=== PATIENT | female | born 1950 | race Caucasian/White ===

== ENCOUNTER 2022-06-14 08:16 | Outpatient (CLI) | payer SELFPAY ==
[2022-06-14 10:07] LABS: Cholesterol* 215 mg/dL (90-199)
[2022-06-14 10:08] LABS: HDL Cholesterol* 48 mg/dL (>=50); LDL Cholesterol Calculated 145 mg/dL (<100); Triglycerides* 110 mg/dL (40-149)
== END 2022-06-14 08:17 | disposition home or self-care (01) ==
PROVIDERS: PCP Family Medicine; Visit Provider Family Medicine
DX: E78.5 Hyperlipidemia, unspecified (principal); E03.9 Hypothyroidism, unspecified; I10 Essential (primary) hypertension; M85.80 Other specified disorders of bone density and structure, unspecified site
CPT/HCPCS: 80061; 84443

== ENCOUNTER 2022-11-04 15:18 | Outpatient (CLI) | payer MEDICARE, BC, SELFPAY ==
--- NOTE | 2022-11-04 15:30 | CRLHL7_ITS ---
For Patients: As a result of the Century Cures Act, medical imaging exams and procedure reports are released immediately into your electronic medical record. You may view this report before your referring provider. If you have questions, please contact your health care provider. DXA BONE MINERAL DENSITY STUDY Reason for exam: Screening. Current height (in): 62.5. Weight (lb): 174. Menopause age: 43. Ethnicity: White. 1. Have you had a previous hip or vertebral fracture? No. 2. Have you had any fractures during your adult life which did not result from significant trauma (e.g., auto accident)? Yes. 3. Did either of your parents have a hip fracture? No. 4. Do you smoke? No. 5. Have you ever taken Glucocorticoids? No. 6. Do you have rheumatoid arthritis? No. 7. Do you have secondary osteoporosis? No. 8. Do you drink 3 or more alcoholic drinks per day? No. 9. Are you being treated for osteoporosis? No. 10. Have you ever taken any of the following medications: Actonel, Evista, Fosamax, Miacalcin, Reclast, Boniva, Forteo, HRT (i.e., estrogen/hormone therapy), Protelos, Prolia, Vitamin D, Calcium, other ??? please specify. ANSWER: Yes, vitamin D and calcium. 11. Do you have any of the following medical conditions: Anorexia or bulimia, asthma or emphysema, end stage renal disease, hyperparathyroidism, any seizure disorders, cancer, inflammatory bowel diseases, hysterectomy, other ??? please specify. ANSWER: No. 12. What was your maximum height (inches)? 63. 13. Do you perform weight bearing exercise regularly? Yes. 14. Do you regularly consume dairy products? Yes. 15. Do you drink caffeinated beverages? Yes. If female: 16. At what age did your period start? 10. 17. Are you premenopausal? No. 18. How many full-term pregnancies have you had? 1. 19. Have you ever missed your period for more than 6 months in a row (not including or menopause)? No. TECHNIQUE: Bone mineral density study was performed using the [employer]. FINDINGS: The results of the study expressed as bone mineral density (BMD) are as follows: Lumbar spine L1 to L3: BMD: 0.805 g/cm2. T-score: -1.9. Z-score: 0.4 Neck Left: BMD: 0.583 g/cm2. T-score: -2.4. Z-score: -0.4 Right: BMD: 0.626 g/cm2. T-score: -2.0. Z-score: 0.0 Total Left: BMD: 0.734 g/cm2. T-score: -1.7. Z-score: 0.0 Right: BMD: 0.786 g/cm2. T-score: -1.3. Z-score: 0.5 IMPRESSION: Osteopenia. *Comparison exams done prior to 04/2020 were performed on different unit, [employer]. COMPARISON: Compared with scan of 01/14/2020, the bone mineral density has increased by 5.0 percent at the spine and increased by 0.9 percent at the hip. FRAX 10-year Fracture Risk Major Osteoporotic Fracture: 22% Hip Fracture: 5.7% Reported Risk Factors: [place] () Neck BMD=0.583, BMI= 31.3, previous fracture Juni Nieves M.D. Diagnostic Radiologist [email or web address] SATNAM/micheal burton/Dictated by: Juni Nieves MD @ 11/05/2022 8:22:00 AM (Electronically Signed)
== END 2022-11-04 15:19 | disposition home or self-care (01) ==
LOC: RAD 15:19
PROVIDERS: PCP Family Medicine; Visit Provider Family Medicine
DX: Z13.820 Encounter for screening for osteoporosis (principal); M85.89 Other specified disorders of bone density and structure, multiple sites
CPT/HCPCS: 77080

== ENCOUNTER 2022-12-21 08:45 | Outpatient (CLI) | payer MEDICARE, BC, SELFPAY | END 2022-12-21 08:46 | disposition home or self-care (01) | LOC: OP CLINIC 08:47 | PROVIDERS: PCP Family Medicine; Visit Provider Surgery | DX: Z12.11 Encounter for screening for malignant neoplasm of colon (principal); K62.1 Rectal polyp; Z86.010 Personal history of colon polyps | CPT/HCPCS: 45385; 88305; 99153; J2250; J3010 ==

== ENCOUNTER 2023-01-12 13:00 | Outpatient (RCR) | payer MEDICARE, BC, SELFPAY ==
--- NOTE | 2022-12-27 15:22 | PT.OPEX ---
PT [place] Outpatient Eval PT [facility] Outpatient Eval Start: 12/27/22 12:30 Freq: Status: Active Protocol: Document 12/27/22 12:30 FARZANA (Rec: 12/27/22 12:33 Gauri [id number]) E-signed By Emmanuel Brown DPT, MS Physical Therapy Outpatient Evaluation Insurance Information Recert Due Date 03/27/23 Insurance Name Medicare B,Blue [employer] Medical Diagnosis Trochanteric bursitis, right hip; trochanteric bursitis, left hip; other specified enthesopathies of left lower limb, excluding foot; other specified enthesopathies of right lower limb, excluding foot. Treating Diagnosis B hip pain, decreased B LE flexibility, gait dysfunction, imbalance and B LE weakness. Subjective Subjective Pt presents to PT with c/o chronic B (L>R) lateral hip pain of insidious origin ~6 months ago. Denies injury with gradual onset of sxs. Describes sxs as sharp ache across the lateral hip. Performed silver sneakers classes 3x per week prior to MD visit but has not attended to wait until learning which exercises to avoid. Typically walks most days but has not this winter due to pain and ice. Finds exercise helps decrease sxs and plans on working with a field sales trainer in the future. Radiographs found mild B hip OA with well-maintained joint space. AGGR factors: sleeping on B (L>R) side, extended walking, sitting and standing. ALLEV factors: movement, rest . Pt finished paperwork 20 min into session. Pain Comments 0-8/10 Current Work Status Retired Preferred Name Tanja Precautions Therapy Limitations/Systems Review Not Limited Objective Functional Test Performed & Score LEFS: 24 Assessment Assessment/Impression Pt displays signs and symptoms consistent with B greater trochanteric bursitis. + pain with palpation with boggy edema surrounding B greater trochanter. B (L>R) piriformis , and B LE weakness and decreased endurance found with testing. Pt unable to perform SLR due to significant B quad weakness. She responded well to combination of stretching, recumbent biking and strengthening exercises with resolution of pain and improved flexibility following today?s session. She will benefit from continued skilled therapy to address these limitations. Primary Functional Limitations Sleeping on B (L>R) side, extended walking, sitting and standing. Plan of Care Rehabilitation Potential Excellent Physical Therapy Goals Long-term goals to be completed in 10 weeks: 1. Pt will be independent and compliant with HEP 2. Pt will display improved B hip flex, ABD and ext strength of >/=4+/5 to improve quality of gait 3. Pt will be able to walk >10 minutes with no elevation in B hip pain to improve cardiovascular health. 4. Pt will report improved quality of sleep not waking at night due to B hip pain. 5. Pt will report >9 point improvement in LEFS questionnaire to significantly improve marlon to daily activities. Coordination/Communication With Referral Source Treatment Plan/Direct Interventions Manual Therapy,Neuromuscular Re-ed,Therapeutic Exercises Frequency/Duration 1x per week for at least 6-10 visits, decreasing visit frequency, as able. Patient Will Be Discharged From Therapy Completion of LTG(s),Skills Plateau,Independent w/HEP, Independently Progressing Evaluation Billing Untimed Code Treatment Minutes 24 Complexity Moderate Certification Information Initial Certification Date 12/27/22 Ending Certification Date 03/27/23 Provider Signature Shows Agreement With POC & Medical Necessity Physician Signature & Date Requested Please Sign/Date Here Physician Comment/Change : Physician NPI Number #
== END 2023-06-16 23:59 | disposition home or self-care (01) ==
PROVIDERS: PCP Family Medicine; Visit Provider Orthopaedic Surgery Sports Medicine
DX: M70.61 Trochanteric bursitis, right hip (principal); Z51.89 Encounter for other specified aftercare
CPT/HCPCS: 97110; 97162

== ENCOUNTER 2023-02-17 08:20 | Outpatient (CLI) | payer MEDICARE, BC, SELFPAY | END 2023-02-17 08:21 | disposition home or self-care (01) | LOC: NFLDREF 02-18 13:30 | PROVIDERS: PCP Family Medicine; Referring Provider Family Medicine; Visit Provider Family Medicine | DX: E78.5 Hyperlipidemia, unspecified (principal); M85.80 Other specified disorders of bone density and structure, unspecified site; I10 Essential (primary) hypertension; E03.9 Hypothyroidism, unspecified; E66.9 Obesity, unspecified | CPT/HCPCS: 80053; 80061; 82306; 84443 ==

== ENCOUNTER 2023-05-11 10:01 | Outpatient (CLI) | payer MEDICARE, BC, SELFPAY | END 2023-05-11 10:02 | disposition home or self-care (01) | LOC: NFLDREF 10:02 | PROVIDERS: PCP Family Medicine; Visit Provider Family Medicine | DX: R35.0 Frequency of micturition (principal) | CPT/HCPCS: 87086; 87186 ==

== ENCOUNTER 2023-05-25 12:46 | Outpatient (CLI) | payer MEDICARE, BC, SELFPAY | END 2023-05-25 12:47 | disposition home or self-care (01) | PROVIDERS: PCP Family Medicine; Visit Provider Family Medicine | DX: R30.0 Dysuria (principal); R25.2 Cramp and spasm | CPT/HCPCS: 80053; 83735; 87086 ==

== ENCOUNTER 2023-08-09 09:10 | Outpatient (CLI) | payer MEDICARE, BC, SELFPAY ==
--- NOTE | 2023-08-09 09:15 | CRLHL7_ITS ---
For Patients: As a result of the Century Cures Act, medical imaging exams and procedure reports are released immediately into your electronic medical record. You may view this report before your referring provider. If you have questions, please contact your health care provider. BILATERAL SCREENING MAMMOGRAM WITH COMPUTER-AIDED DETECTION AND TOMOSYNTHESIS TECHNIQUE: CC and MLO views were obtained. These mammographic images have been obtained using full-field digital technique. These mammographic images were interpreted with the benefit of computer-aided detection. Breast Tomosynthesis was used in this interpretation. COMPARISON FILM: 04/30/22, 06/09/17. FINDINGS: There are scattered areas of fibroglandular density IMPRESSION: There is no radiographic evidence for malignancy. ASSESSMENT: BI-RADS Category 1: Negative RECOMMENDATION: Routine screening mammogram in 1 year. A lay language report of this examination will be provided to the patient. Juni Nieves M.D. Diagnostic Radiologist [email or web address] JUVENAL/Dictated by: Juni Nieves MD @ 08/09/2023 10:09:00 AM (Electronically Signed)
== END 2023-08-09 09:11 | disposition home or self-care (01) ==
LOC: MAMMO 09:11
PROVIDERS: PCP Family Medicine; Visit Provider Family Medicine
DX: Z12.31 Encounter for screening mammogram for malignant neoplasm of breast (principal)
CPT/HCPCS: 77063; 77067

== ENCOUNTER 2023-10-26 11:30 | Outpatient (RCR) | payer MEDICARE, BC, SELFPAY | END 2023-10-26 13:35 | disposition home or self-care (01) | PROVIDERS: PCP Family Medicine; Visit Provider Family Medicine | DX: R32 Unspecified urinary incontinence (principal); Z51.89 Encounter for other specified aftercare | CPT/HCPCS: 97110; 97112; 97161; 97535 ==

== ENCOUNTER 2023-12-08 15:10 | Emergency (ER) | payer MEDICARE, BC, SELFPAY ==
[2023-12-08 15:15] VITALS: BP 144/83; PULSE 83; RESP 18; TEMP 36.2; O2SAT 96; BMI 30.1
--- NOTE | 2023-12-08 16:22 | CRLHL7_ITS ---
For Patients: As a result of the Century Cures Act, medical imaging exams and procedure reports are released immediately into your electronic medical record. You may view this report before your referring provider. If you have questions, please contact your health care provider. INDICATION: Cough. TECHNIQUE: Chest 2 views. COMPARISON: None. FINDINGS: Cardiovascular and mediastinum: Heart size and vasculature are normal in caliber and appearance. Lungs and pleural spaces: Lungs are clear. No sign of infiltrate or mass. No sign of pleural effusion. No pneumothorax. Bones and soft tissues: No significant findings. IMPRESSION: No acute or significant findings. Dictated by Michel Peres MD @ 12/08/2023 5:05:06 PM (Electronically Signed)
--- NOTE | 2023-12-08 16:38 | ED_ITS ---
HPI - General Adult General Date Seen: 12/08/23 Chief complaint: Cough Stated complaint: Congestion, cough Time Seen by Provider: 12/08/23 15:34 History of Present Illness HPI narrative: this is a pleasant 73-year-old female presenting to the ER today with her hu zoila with concern for cough, pharyngitis, hoarse voice. She has a past medical history of hypothyroidism, hypertension, GERD, dyslipidemia. It sounds like she had a distant history of possible asthma when she was young but no long-term lung disease. Nonsmoker. No history of COPD. She and her were both exposed to RSV ( by her son in law, on [place],. About 2 and half weeks ago. ). They been sick for about 2 weeks with cough, congestion, nasal congestion, hoarse voice, mildly sore throat. She continues to have cough. If if anything , she is perhaps getting slightly better, but certainly not back to normal yet. However, her is feeling worse today is now running a fever. She is not have any shortness of breath. no chest pain. No shortness of breath. No vomiting. She has had decreased hearing in her right ear. It feels plugged and congestion. No ear pain. No headache. Appetite normal. No swelling in her legs. Related Data Home Medications Medication Instructions Recorded Confirmed calcium-magnesium 750 mg-465 mg 1 tab PO QDAY 06/16/22 09/06/23 tablet cholecalciferol (vitamin D3) 50 2,000 unit PO DAILY 06/16/22 09/06/23 mcg (2,000 unit) tablet Previous Rx's Medication Instructions Recorded levothyroxine 75 mcg tablet 75 mcg PO DAILY #90 tabs 02/22/23 lisinopril 10 mg tablet 10 mg PO DAILY #90 tabs 02/22/23 estradiol 10 mcg vaginal tablet 10 mcg vaginal .COMPLEX #45 tabs 09/06/23 (Vagifem) hydrochlorothiazide 12.5 mg tablet 12.5 mg PO QDAY #90 tabs 09/13/23 estradiol 0.01% (0.1 mg/gram) 1 g vaginal 2XW #42.5 grams 09/14/23 vaginal cream meclizine 25 mg tablet 25 mg PO QDAY PRN dizziness #30 12/08/23 tabs oseltamivir 75 mg capsule (Tamiflu) 75 mg PO BID 5 days #10 caps 12/08/23 Allergies Allergy/AdvReac Type Severity Reaction Status Date / Time Sulfa (Sulfonamide AdvReac out of it, Verified 12/08/23 15:17 Antibiotics) [facility] Medical History Irritated nevus ?D22.9 - Melanocytic nevi, unspecified (ICD-10) Seasonal allergies ?J30.2 - Other seasonal allergic rhinitis (ICD-10) Polyp of colon (10/07/16) ?K63.5 - Polyp of colon (ICD-10) Osteopenia (2016) ?M85.80 - Other specified disorders of bone density and structure, unspecified site (ICD-10) Hypothyroidism ?E03.9 - Hypothyroidism, unspecified (ICD-10) Hypertension ?I10 - Essential (primary) hypertension (ICD-10) Gastroesophageal reflux disease ?K21.9 - Gastro-esophageal reflux disease without esophagitis (ICD-10) Dyslipidemia (06/2019) ?E78.5 - Hyperlipidemia, unspecified (ICD-10) Surgical History History of tubal ligation (1989) ?Z98.51 - Tubal ligation status (ICD-10) History of tonsillectomy (1952) ?Z90.89 - Acquired absence of other organs (ICD-10) History of cataract extraction (2012) ?Z98.49 - Cataract extraction status, unspecified eye (ICD-10) Family History Epilepsy Bipolar disorder Family/Other Multiple myeloma Father Stroke Mother, Onset Age: 70 Social History Narrative: , 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 Smoking Status: Never smoker Do you use any of these nicotine containing products: None How often do you have a drink containing alcohol: never How often do you have six or more drinks on one occasion: Never AUDIT-C Alcohol total score: 0 Non-prescribed substance use: denies use Little interest or pleasure in doing things: not at all Feeling down, depressed, or hopeless: not at all Exam Narrative: Exam Narrative: Constitutional: Appears well-developed and well-nourished. Alert. Conversant. Non toxic. HENT: Head: Atraumatic. Nose: Nose normal. Right ear: Opaque fluid behind the TM. No TM erythema or bulging. Canal normal. Left ear: A small amount of fluid behind the TM. No TM erythema or bulging. Canal normal. Mouth/Throat: Oral mucosa is clear and moist. no trismus. Pharynx normal. Tons ils symmetric. No tonsillar enlargement, erythema, or exudate. She does have a hoarse voice consistent with laryngitis. No stridor or other signs of upper airway compromise or respiratory distress. Eyes: Conjunctivae normal. EOM normal. Pupils equal, round, and reactive to light. No scleral icterus. Neck: Normal range of motion. Neck supple. No tracheal deviation present. Cardiovascular: Normal rate, regular rhythm. No gallop. No friction rub. No murmur heard. Symmetric radial artery pulses Pulmonary/Chest: Effort normal. A frequent dry cough.No stridor. No respiratory distress. No wheezes. No rales. No rhonchi . No tenderness. Abdominal: Soft. No distension. No mass. No tenderness. Musculoskeletal: RUE: Normal range of motion. No tenderness. No deformity LUE: Normal range of motion. No tenderness. No deformity RLE: Normal range of motion. No edema. No tenderness. No deformity LLE: Normal range of motion. No edema. No tenderness. No deformity Lymph: No cervical adenopathy. Neurological: Alert and oriented to person, place, and time. Normal strength. CN II-VII intact. No sensory deficit. GCS eye subscore is 4. GCS verbal subscore is 5. GCS motor subscore is 6. Normal coordination Skin: Skin is warm and dry. No rash noted. No pallor. Normal capillary refill. Psychiatric: Normal mood. Normal affect. Const: Vital Signs, click to edit/add: Vital Signs - 24 hr 12/08/23 15:15 12/08/23 17:22 Temperature 97.2 F L 99.2 F Pulse Rate [Pulse Oximeter] 83 69 Respiratory Rate 18 20 Blood Pressure [Ri ght Upper Arm] 144/83 H 130/79 Pulse Oximetry 96 93 Oxygen Delivery Me thod Room Air Room Air Course Vital Signs Vital signs: Initial Vital Signs Temperature 97.2 F L 12/08/23 15:15 Temperature Source Temporal Artery Scan 12/08/23 15:15 Pulse Rate 83 12/08/23 15:15 Respiratory Rate 18 12/08/23 15:15 Blood Pressure 144/83 H 12/08/23 15:15 Blood Pressure Mean 103 12/08/23 15:15 Blood Pressure Position Sitting 12/08/23 15:15 Pulse Oximetry 96 12/08/23 15:15 Oxygen Delivery Method Room Air 12/08/23 15:15 Vital Signs Temperature 97.2 F L 12/08/23 15:15 Pulse Rate 83 12/08/23 15:15 Respiratory Rate 18 12/08/23 15:15 Blood Pressure 144/83 H 12/08/23 15:15 Pulse Oximetry 96 12/08/23 15:15 Oxygen Delivery Method Room Air 12/08/23 15:15 Temperature 99.2 F 12/08/23 17:22 Pulse Rate 69 12/08/23 17:22 Respiratory Rate 20 12/08/23 17:22 Blood Pressure 130/79 12/08/23 17:22 Pulse Oximetry 93 12/08/23 17:22 Oxygen Delivery Method Room Air 12/08/23 17:22 Medical Decision Making MDM Narrative Medical decision making narrative: This patient presents With her for evaluation of 2 week history of cough, nasal congestion. They are both here with the similar course of illness, however he is worse today as he has now developed a fever. Overall she says that her symptoms have been slowly improving. She has known exposure to RSV and we suspect that her illness initiated as an RSV infection. Viral testing today is negative for RSV, influenza, COVID. Given the duration of her cough we did obtain chest x-ray which is fortunately clear. There is no signs at this point of serious bacterial infection such as OM, RPA, epiglottitis, ASSISTANT STORE MANAGER, strep pharyngitis, pneumonia, sinusitis, meningitis, bacteremia, serious bacterial infection. There are no gastrointestinal symptoms at this point and no signs of dehydration. Her is positive for influenza a today. Since she has been heavily exposed him, so it is possible that her symptoms are also due to influenza. It sounds like her symptoms initially started as an RSV infection. Unclear to know if she truly has contracted influenza a today or exactly when the time of onset would be. Given her age and comorbidities, she would be at risk for serious illness from influenza. Therefore will start her on Tamiflu. Discussed with the patient and her that time flu has most benefit if it can be started within 48 hours of onset of illness. Were not able to identify a clear onset but at this point the risk benefit would favor treatment. There is no evidence for any bronchospasm on her exam. Breathing easily. Normal oxygen on room air. At this point she does not require hospitalization. Unlikely to benefit from laboratory workup. Close followup with primary care physician is indicated. Return to ED for Fever, worsening cough or trouble breathing, dehydration or protracted vomiting, confusion, or other worsening. Lab Data Labs: Lab Results 12/08/23 Range/Units 15:40 SARS-CoV-2 (PCR) Negative SARS-CoV-2 (Negative) Influenza Type A (PCR) Negative PCR FLU A (Negative) Influenza Type B (PCR) Negative PCR FLU B (Negative) RSV (PCR) Negative PCR RSV (Negative) Imaging Data Chest x-ray: Attestation: I have reviewed the pertinent imaging results. Radiologist's impression: IMPRESSION: No acute or significant findings. Discharge Plan Discharge Clinical Impression: Influenza Patient Disposition: Home, Self-Care Condition: Stable Instructions: Influenza (DC) Additional Instructions: as we discussed, please return to the ER right away if you have worsening trouble breathing, cough, high fever, weakness, or any concerns. Please stay home see known spread your infection to other people until your cough is improving and you have been afebrile for 24 hours. Prescriptions: New oseltamivir [Tamiflu] 75 mg capsule 75 mg PO BID 5 Days Qty: 10 0RF No Action cholecalciferol (vitamin D3) 50 mcg (2,000 unit) tablet 2,000 unit PO DAILY calcium-magnesium 750-465 mg tablet 1 tab PO QDAY levothyroxine 75 mcg tablet 75 mcg PO DAILY Qty: 90 4RF lisinopril 10 mg tablet 10 mg PO DAILY Qty: 90 4RF estradiol [Vagifem] 10 mcg tablet 10 mcg vaginal .COMPLEX Qty: 45 4RF Rx Instructions: 1 tab into vagina every nigth x 2 weeks, then twice a week hydrochlorothiazide 12.5 mg tablet 12.5 mg PO QDAY Qty: 90 1RF estradiol 0.01 % (0.1 mg/gram) cream 1 g vaginal 2XW Qty: 42.5 6RF meclizine 25 mg tablet 25 mg PO QDAY PRN (Reason: dizziness) Qty: 30 0RF Follow Up/Referrals: Erna Gonzalez MD [Primary Care Provider] - Stand Alone Forms: [employer] Info Instructions
[2023-12-08 16:55] LABS: PCR FLU A Negative PCR FLU A (Negative); PCR FLU B Negative PCR FLU B (Negative); PCR RSV Negative PCR RSV (Negative); SARS PCR* Negative SARS-CoV-2 (Negative)
[2023-12-08 17:22] VITALS: BP 130/79; PULSE 69; RESP 20; TEMP 37.3; O2SAT 93
== END 2023-12-08 18:05 | disposition home or self-care (01) ==
PROVIDERS: Emergency Provider Emergency Medicine; PCP Family Medicine
DX: J10.1 Influenza due to other identified influenza virus with other respiratory manifestations (principal)
CPT/HCPCS: 71046; 87631; 99283; 99284

== ENCOUNTER 2024-01-12 19:40 | Emergency (ER) | payer MEDICARE, BC, SELFPAY ==
[2024-01-12 19:44] VITALS: BP 137/94; PULSE 88; RESP 18; TEMP 37.4; O2SAT 96; BMI 30.1
--- NOTE | 2024-01-12 20:13 | ED.GENADULT ---
HPI - General Adult General Chief complaint: Chest Pain Stated complaint: chest pain Time Seen by Provider: 01/12/24 19:52 History of Present Illness HPI narrative: This 73-year-old female comes in reporting some chest discomfort over the past couple days that occurs only when taking a deep breath or coughing. She states that she did have a rather harsh cough prior to this but this has dissipated now. She does not report any shortness of breath, lightheadedness, diaphoresis, or exercise intolerance. She did have an episode of nausea earlier today that was not related to chest discomfort. She did have associated hearing loss in her right ear and vertigo symptoms suggestive of Meniere's disease. Related Data Home Medications Medication Instructions Recorded Confirmed calcium-magnesium 750 mg-465 mg 1 tab PO QDAY 06/16/22 01/06/24 tablet cholecalciferol (vitamin D3) 50 2,000 unit PO DAILY 06/16/22 01/06/24 mcg (2,000 unit) tablet Previous Rx's Medication Instructions Recorded levothyroxine 75 mcg tablet 75 mcg PO DAILY #90 tabs 02/22/23 lisinopril 10 mg tablet 10 mg PO DAILY #90 tabs 02/22/23 hydrochlorothiazide 12.5 mg tablet 12.5 mg PO QDAY #90 tabs 09/13/23 meclizine 25 mg tablet 25 mg PO QDAY PRN dizziness #30 12/08/23 tabs Allergies Allergy/AdvReac Type Severity Reaction Status Date / Time Sulfa (Sulfonamide AdvReac out of it, Verified 01/12/24 19:48 Antibiotics) spacey Review of Systems Status of ROS: Reports: 10 or more systems reviewed and unremarkable except as noted in History and below Narrative: Constitutional: No fevers, no weight gain or loss. Eyes: No discharge. No vision changes. HENT: No congestion, no sore throat, no ear pain. Cardiovascular: No palpitations. Respiratory: No shortness of breath, no wheezes. Occasional cough. Gastrointestinal: No abdominal pain, no vomiting, no diarrhea. Genitourinary: No dysuria, no hematuria. Musculoskeletal: Normal range of motion. Skin: No rashes, no pruritis. Neurological: No dizziness, weakness, sensory change, speech change. Endo/Heme/Allergies: No bruising or bleeding. No polydipsia. Pysch: no suicidality, no anxiety, no insomnia. All other systems reviewed and are negative. [facility] Medical History (Updated 01/12/24 @ 20:18 by Artis Elizabeth MD) Voice hoarseness ?R49.0 - Dysphonia (ICD-10) Acute vestibular neuritis ?H81.20 - Vestibular neuronitis, unspecified ear (ICD-10) Irritated nevus ?D22.9 - Melanocytic nevi, unspecified (ICD-10) Seasonal allergies ?J30.2 - Other seasonal allergic rhinitis (ICD-10) Polyp of colon (10/07/16) ?K63.5 - Polyp of colon (ICD-10) Osteopenia (2017) ?M85.80 - Other specified disorders of bone density and structure, unspecified site (ICD-10) Hypothyroidism ?E03.9 - Hypothyroidism, unspecified (ICD-10) Hypertension ?I10 - Essential (primary) hypertension (ICD-10) Gastroesophageal reflux disease ?K21.9 - Gastro-esophageal reflux disease without esophagitis (ICD-10) Dyslipidemia (06/2019) ?E78.5 - Hyperlipidemia, unspecified (ICD-10) Surgical History History of tubal ligation (1989) ?Z98.51 - Tubal ligation status (ICD-10) History of tonsillectomy (1952) ?Z90.89 - Acquired absence of other organs (ICD-10) History of cataract extraction (2012) ?Z98.49 - Cataract extraction status, unspecified eye (ICD-10) Family History Epilepsy Bipolar disorder Family/Other Multiple myeloma Father Stroke Mother, Onset Age: 70 Social History Narrative: , 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 Smoking Status: Never smoker Do you use any of these nicotine containing products: None How often do you have a drink containing alcohol: never How often do you have six or more drinks on one occasion: Never AUDIT-C Alcohol total score: 0 Non-prescribed substance use: denies use Little interest or pleasure in doing things: not at all Feeling down, depressed, or hopeless: not at all Exam Narrative: Exam Narrative: Constitutional: Well-developed, well-nourished, no acute distress. HEENT: Normocephalic, atraumatic. Neck: Normal range of motion. Nontender. Supple. Heart: Regular. No murmurs. Normal rate. Intact distal pulses. Lungs: Clear to auscultation. No wheezes, rhonchi, or rales. Chest discomfort in the upper anterior central chest is easily reproducible when taking a deep breath. Abdomen: Normal bowel sounds. Nontender. No rebound tenderness. Genitalia: Deferred. Back: No midline tenderness. Normal range of motion. Extremities: Normal range of motion. No injury. Skin: Intact. No rash. Warm. No erythema or pallor. Neurologic: No altered sensation. No weakness. Alert and oriented. Psychiatric: No suicidality. No anxiety or depression. No insomnia. Nursing notes and vitals signs are reviewed. Const: Vital Signs, click to edit/add: Vital Signs - 24 hr 01/12/24 19:44 Temperature 99.3 F Pulse Rate [Left P ulse Oximeter] 88 Respiratory Rate 18 Blood Pressure [Ri ght Upper Arm] 137/94 H Pulse Oximetry 96 Oxygen Delivery Me thod Room Air Course Vital Signs Vital signs: Initial Vital Signs Temperature 99.3 F 01/12/24 19:44 Temperature Source Temporal Artery Scan 01/12/24 19:44 Pulse Rate 88 01/12/24 19:44 Pulse Rhythm Regular 01/12/24 19:44 Pulse Strength 3+ Normal 01/12/24 19:44 Respiratory Rate 18 01/12/24 19:44 Blood Pressure 137/94 H 01/12/24 19:44 Blood Pressure Mean 108 H 01/12/24 19:44 Blood Pressure Position Sitting 01/12/24 19:44 Pulse Oximetry 96 01/12/24 19:44 Oxygen Delivery Method Room Air 01/12/24 19:44 Vital Signs Temperature 99.3 F 01/12/24 19:44 Pulse Rate 88 01/12/24 19:44 Respiratory Rate 18 01/12/24 19:44 Blood Pressure 137/94 H 01/12/24 19:44 Pulse Oximetry 96 01/12/24 19:44 Oxygen Delivery Method Room Air 01/12/24 19:44 Temperature 99.3 F 01/12/24 19:44 Pulse Rate 88 01/12/24 19:44 Respiratory Rate 18 01/12/24 19:44 Blood Pressure 137/94 H 01/12/24 19:44 Pulse Oximetry 96 01/12/24 19:44 Oxygen Delivery Method Room Air 01/12/24 19:44 Medical Decision Making MDM Narrative Medical decision making narrative: This patient has reproducible chest discomfort when taking a deep breath or coughing. She does not have any exercise intolerance or other associated symptoms that would indicate and intrathoracic problem other than her bronchial tree and chest wall symptoms. An EKG is obtained and shows normal sinus rhythm without ST or T-wave abnormalities. I did discuss lab and imaging options with the patient which were declined in a process of shared decision making. She does have incidental symptoms that are suspicious for Meniere's disease. The patient does have a follow-up appointment with ear nose and throat clinic in a few weeks. She is okay to be discharged home. ECG Data Attestation: I personally reviewed and interpreted this ECG as follows: Interpretation: Normal sinus rhythm. Rate is 81 beats per minute. There are no ST or T-wave abnormalities. Discharge Plan Discharge Clinical Impression: Acute chest wall pain Patient Disposition: Home, Self-Care Condition: Stable Additional Instructions: Continue current plans. Activity as tolerated. Follow up with MD or return if worsening. Prescriptions: No Action cholecalciferol (vitamin D3) 50 mcg (2,000 unit) tablet 2,000 unit PO DAILY calcium-magnesium 750-465 mg tablet 1 tab PO QDAY levothyroxine 75 mcg tablet 75 mcg PO DAILY Qty: 90 4RF lisinopril 10 mg tablet 10 mg PO DAILY Qty: 90 4RF hydrochlorothiazide 12.5 mg tablet 12.5 mg PO QDAY Qty: 90 1RF meclizine 25 mg tablet 25 mg PO QDAY PRN (Reason: dizziness) Qty: 30 0RF Follow Up/Referrals: Erna Gonzalez MD [Primary Care Provider] - Stand Alone Forms: [employer] Info Instructions
== END 2024-01-12 20:34 | disposition home or self-care (01) ==
LOC: ED 20:29
PROVIDERS: Emergency Provider Emergency Medicine Emergency Medical Services; PCP Family Medicine
DX: R07.89 Other chest pain (principal)
CPT/HCPCS: 93005; 99284

== ENCOUNTER 2024-04-06 07:45 | Outpatient (CLI) | payer MEDICARE, BC, SELFPAY | END 2024-04-06 07:46 | disposition home or self-care (01) | LOC: NFLDREF 04-09 15:30 | PROVIDERS: PCP Family Medicine; Referring Provider Family Medicine; Visit Provider Family Medicine | DX: E03.9 Hypothyroidism, unspecified (principal); E78.5 Hyperlipidemia, unspecified; I10 Essential (primary) hypertension; M85.80 Other specified disorders of bone density and structure, unspecified site | CPT/HCPCS: 80053; 80061; 82306; 84443 ==

== ENCOUNTER 2024-06-13 07:52 | Outpatient (CLI) | payer MEDICARE, BC, SELFPAY ==
--- NOTE | 2024-06-13 08:00 | CRLHL7_ITS ---
For Patients: As a result of the Century Cures Act, medical imaging exams and procedure reports are released immediately into your electronic medical record. You may view this report before your referring provider. If you have questions, please contact your health care provider. CLINICAL HISTORY: pelvic pain and perineal pain TECHNIQUE: 2D patel scale ultrasound. In addition color Doppler and spectral Doppler analysis was performed of the pelvis using a transvaginal approach. FINDINGS: On transvaginal imaging, the myometrium has a mildly heterogeneous echotexture. The uterus measures 6.0 x 2.7 x 4.0 cm. The endometrial lining measures 1 mm in thickness. The right ovary is not visualized and the left ovary measures 2.1 x 1.1 x 1.3 cm. The left ovary demonstrates normal arterial and venous blood flow on color Doppler and spectral Doppler analysis. There are no suspicious fluid collections within the cul-de-sac. Small cyst within the left ovary measures 7 x 6 x 5 millimeters. IMPRESSION: No suspicious findings. Dictated by Juni Nieves MD @ 06/14/2024 9:43:47 AM (Electronically Signed)
== END 2024-06-13 07:53 | disposition home or self-care (01) ==
LOC: US 07:53
PROVIDERS: PCP Family Medicine; Visit Provider Family Medicine
DX: R10.2 Pelvic and perineal pain (principal)
CPT/HCPCS: 76830; 76856

== ENCOUNTER 2024-07-04 12:37 | Outpatient (CLI) | payer MEDICARE, BC, SELFPAY | END 2024-07-04 12:38 | disposition home or self-care (01) | PROVIDERS: PCP Family Medicine; Visit Provider Otolaryngology | DX: Z79.52 Long term (current) use of systemic steroids (principal); R76.8 Other specified abnormal immunological findings in serum; H91.90 Unspecified hearing loss, unspecified ear; E03.9 Hypothyroidism, unspecified; I10 Essential (primary) hypertension | CPT/HCPCS: 86039; 86431; 86618 ==

== ENCOUNTER 2024-07-20 14:59 | Outpatient (CLI) | payer MEDICARE, BC, SELFPAY ==
--- NOTE | 2024-07-20 15:30 | CRLHL7_ITS ---
For Patients: As a result of the Century Cures Act, medical imaging exams and procedure reports are released immediately into your electronic medical record. You may view this report before your referring provider. If you have questions, please contact your health care provider. INDICATION: Hearing loss right ear. TECHNIQUE: Multiplanar multisequence MR imaging of the brain and internal auditory canals prior to and following intravenous contrast. COMPARISON: None. FINDINGS: Mild diffuse cerebral volume loss. No mass effect or midline shift. Scattered FLAIR hyperintensities in the supratentorial white matter and domingo, typical for mild chronic microvascular ischemic changes. Very small left middle cranial fossa arachnoid cyst. No pathologic intracranial enhancement. No intracranial hemorrhage or pathologic extra-axial fluid collection. No diffusion restriction to suggest acute infarction. No mass or pathologic enhancement within the internal auditory canals or cerebellopontine angles. No concerning signal abnormalities in the ear structures. No vascular loop in the internal auditory canals. The major arterial flow voids of the skullbase are preserved. Thinning of the ocular lenses. The paranasal sinuses are well aerated. The mastoid air cells are clear. IMPRESSION: 1. No acute intracranial abnormality. 2. No mass or pathologic enhancement within the internal auditory canals or cerebellopontine angles. 3. Mild chronic microvascular ischemic changes and diffuse cerebral volume loss. Dictated by Hayden Wayne MD @ 07/21/2024 9:19:29 AM (Electronically Signed)
== END 2024-07-20 15:00 | disposition home or self-care (01) ==
LOC: MRI 15:00
PROVIDERS: PCP Family Medicine; Visit Provider Otolaryngology
DX: H91.21 Sudden idiopathic hearing loss, right ear (principal); I67.82 Cerebral ischemia
CPT/HCPCS: 70553; A9575

== ENCOUNTER 2024-09-17 12:40 | Outpatient (CLI) | payer MEDICARE, BC, SELFPAY ==
--- OUTSIDE RECORDS SUMMARY | 2024-09-19 07:43 | XMS_ITS | Continuity of Care Document ---
Author Organization [facility] Address [address] [place] [address] Phone Care Team Providers Care Attendant Honor Bar Name Role Phone Henok Villalobos MD Unavailable Unavailable Allergies, Adverse Reactions, Alerts Substance Reaction Status Criticality Sulfa (Sulfonamide Antibiotics) Active No Information Medications Medication Instructions Dosage Effective Dates (start - stop) Status Comments lisinopril 10 mg tablet take 1 tablet by oral route every day 10 MG - Active levothyroxine 75 mcg tablet take 1 tablet by oral route every day 75 MCG - Active hydrochlorothiazide 12.5 mg tablet take 1 tablet by oral route every day 12.5 MG - Active Vitamin D3 50 mcg (2,000 unit) tablet take 1 Tablet by Oral route every day 1 Tablet - Active CALCIUM-MAGNESIUM (unknown strength) take 1 tablet by oral route every day Not Available - Active Procedures Procedure Date Office/Outpatient Visit, [facility] Advance Directives Directive Yes / No Effective Date File Name No Information Encounters Encounter Description Practice Location Reason(s) For Visit Diagnoses Date Provider Providers Copied on Encounter [facility], [address], [place], [address], [place] tel:[phone] [facility] , No Information Wilfredo Whiting. [facility] [address], [place], [address], [place]. tel:[phone] Office/Outpa tient Visit, New [facility], [address], [place], [address], [place] tel:[phone] [facility] , Abnormal Lab Study (chief complaint) Positive Antibody Jul- 4 Wilfredo Whiting. [facility] [address], [place], [address], [place]. tel:[phone] Referring Provider: Henok Arreaga, [facility] [address], [place], [address]. tel:[phone] [facility], [address], [place], [address], [place] tel:[phone] [facility] , No Information 4 Justo Larry. [facility] [address], [place], [address], [place]. tel:[phone] Family History Family Member Type Diagnosis Age At Onset No Information Payers Payer name Insurance type Covered libertarian ID Telly caba(s) Medicare MB [id number] [facility] [id number] Social History Type Description Quantity Date Captured Comments Alcohol Use Details Unknown Caffeine Use Details Unknown Tobacco Use Status No Information Smoking Status No Information Sex Female Chief Complaint And Reason For Visit No Information Reason For Referral Reason For Referral No Information History Of Present Illness Encounter Date Complaint History Of Prese nt Illness Abnormal Lab Study Functional Status Date Functional Assessmen t No Information Instructions Date Instruction Additional Infor mation No Information Assessments Type Assessment Date No Information Patient Care Teams Name Effective Dates (start - stop) Status Members No Information
== END 2024-09-17 12:41 | disposition home or self-care (01) ==
LOC: NFLDREF 09-19 07:41
PROVIDERS: PCP Family Medicine; Referring Provider Family Medicine; Visit Provider Registered Nurse
DX: N39.41 Urge incontinence (principal); N39.0 Urinary tract infection, site not specified; N30.01 Acute cystitis with hematuria
CPT/HCPCS: 87086; 87186

== ENCOUNTER 2025-06-05 07:49 | Outpatient (CLI) | payer MEDICARE, BC, SELFPAY | END 2025-06-05 07:50 | disposition home or self-care (01) | LOC: NFLDREF 06-07 13:02 | PROVIDERS: PCP Family Medicine; Referring Provider Family Medicine; Visit Provider Family Medicine | DX: E78.5 Hyperlipidemia, unspecified (principal); E03.9 Hypothyroidism, unspecified; M85.89 Other specified disorders of bone density and structure, multiple sites; I10 Essential (primary) hypertension; E66.9 Obesity, unspecified | CPT/HCPCS: 80053; 80061; 82306; 84443 ==

== ENCOUNTER 2025-10-16 13:20 | Outpatient (CLI) | payer MEDICARE, BC, SELFPAY ==
--- NOTE | 2025-10-16 13:30 | CRLHL7_ITS ---
For Patients: As a result of the Century Cures Act, medical imaging exams and procedure reports are released immediately into your electronic medical record. You may view this report before your referring provider. If you have questions, please contact your health care provider. XR DXA Bone Mineral Density (BMD) Reason for exam: Follow-up osteopenia. Current height (in): 62.5. Weight (lb): 174.0. Menopause age: 43. Ethnicity: White. 1. Have you had a previous hip or vertebral fracture? No. 2. Have you had any fractures during your adult life which did not result from significant trauma (e.g., auto accident)? Yes. . 3. Did either of your parents have a hip fracture? No. 4. Do you smoke? No. 5. Have you ever taken Glucocorticoids? Yes. 6. Do you have rheumatoid arthritis? No. 7. Do you have secondary osteoporosis? No. 8. Do you drink 3 or more alcoholic drinks per day? No. 9. Are you being treated for osteoporosis? No. 10. Have you ever taken any of the following medications: Actonel, Evista, Fosamax, Miacalcin, Reclast, Boniva, Forteo, HRT (i.e. estrogen/hormone therapy), Protelos, Prolia, Vitamin D, Calcium, other ??? please specify. ANSWER: Yes, vitamin D, calcium. 11. Do you have any of the following medical conditions: Anorexia or bulimia, asthma or emphysema, end stage renal disease, hyperparathyroidism, any seizure disorders, cancer, inflammatory bowel diseases, hysterectomy, other ??? please specify. ANSWER: No. 12. What was your maximum height (inches)? 63. 13. Do you perform weight bearing exercise regularly? Yes. 14. Do you regularly consume dairy products? Yes. 15. Do you drink caffeinated beverages? Yes. 16. At what age did your period start? 10. 17. Are you premenopausal? No. 18. How many full term pregnancies have you had? 1. 19. Have you ever missed your period for more than 6 months in a row (not including or menopause)? No. TECHNIQUE: Bone mineral density study was performed using the [employer]. FINDINGS: The results of the study expressed as bone mineral density (BMD) are as follows: Lumbar spine L1 to L3: BMD: 0.848 g/cm2. T-score: -1.5. Z-score: 0.9. Neck Left: BMD: 0.545 g/cm2. T-score: -2.7. Z-score: -0.6. Right: BMD: 0.568 g/cm2. T-score: -2.5. Z-score: -0.4. Total Left: BMD: 0.784 g/cm2. T-score: -1.3. Z-score: 0.6. Right: BMD: 0.830 g/cm2. T-score: -0.9. Z-score: 1.0. IMPRESSION: Osteoporosis. *Comparison exams done prior to 04/2020 were performed on different unit, [employer]. COMPARISON: Compared with scan of 11/04/2022, the bone mineral density has increased by 5.3 percent at the spine and increased by 6.3 percent at the hip. Compared with scan of 01/14/2020, the bone mineral density has increased by 5.0 percent at the spine and increased by 0.9 percent at the hip. Maya Rader M.D. Diagnostic Radiologist [email or web address] SKYE/aakash / bM/Dictated by: Maya Rader MD @ 10/16/2025 6:00:00 PM (Electronically Signed)
--- NOTE | 2025-10-16 14:00 | CRLHL7_ITS ---
For Patients: As a result of the Century Cures Act, medical imaging exams and procedure reports are released immediately into your electronic medical record. You may view this report before your referring provider. If you have questions, please contact your health care provider. INDICATION: BILATERAL SCREENING MAMMOGRAM, ASYMPTOMATIC 75 Y/O FEMALE COMPARISON: 08/09/2023, 04/30/2022, 01/14/2020 TECHNIQUE: Digital mammogram in CC and MLO projections including computer-aided detection (CAD) and tomosynthesis. BREAST COMPOSITION: There are scattered areas of fibroglandular density. FINDINGS: No suspicious findings. ASSESSMENT: BI-RADS 1 Negative RECOMMENDATION: Annual screening mammogram. A lay language report of this examination will be provided to the patient. Dictated by: Juni Nieves MD @ 10/17/2025 09:31:51 (Electronically Signed)
== END 2025-10-16 13:21 | disposition home or self-care (01) ==
LOC: RAD 13:21
PROVIDERS: PCP Family Medicine; Visit Provider Family Medicine
DX: Z12.31 Encounter for screening mammogram for malignant neoplasm of breast (principal); M85.89 Other specified disorders of bone density and structure, multiple sites; M81.0 Age-related osteoporosis without current pathological fracture
CPT/HCPCS: 77063; 77067; 77080